=== PATIENT | male | born 2000 | race Caucasian/White ===

== ENCOUNTER 2022-06-06 11:42 | Inpatient (IN) ==
[2022-06-06] MEDS ORDERED: Iopamidol - 370 500 ML MLS IVP ONE (13:05)
[2022-06-06 13:32] LABS: Basophils % 0.2 %; Eosinophils % 0.2 %; Hematocrit 39.5 % (37.5-50.1); Hemoglobin 14.3 g/dL (12.9-16.9); Immature Granulocytes % 0.5 % (0-4); Lymphocytes # 0.7 K/mcL (0.6-4.6); Lymphocytes % 4.1 %; Mean Corpuscular HGB Conc 36.2 g/dL (31.6-35.5); Mean Corpuscular Volume 85.5 fL (83.0-100.0); Mean Platelet Volume 10.6 fL (9.4-12.4); Monocytes # 1.2 K/mcL (0.0-1.3); Monocytes % 6.4 %; Neutrophils # 15.9 K/mcL (1.6-8.9); Platelet Count 291 K/mcL (140-400); Red Blood Count 4.62 M/mcL (4.19-5.50); Red Cell Distribution Width 11.2 % (11.5-14.5); Segmented Neutrophils % 88.6 %; White Blood Count 17.9 K/mcL (4.3-11.1)
[2022-06-06] MEDS ORDERED: Tdap (Boostrix) Vaccine 0.5 ML SYRINGE IM ONE (14:04)
[2022-06-06] MEDS ORDERED: Piperacillin/Tazobactam 3.375 GM in 0.9 % Sodium Chloride Mini Bag 100 ML IVPB ONE (14:04)
[2022-06-06] MEDS ORDERED: Vancomycin 1,250 MG/262.5 ML IV.SOLN IVPB ONE (14:04)
[2022-06-06] MEDS ORDERED: Clindamycin 600 MG/50 ML 600 MG/50 ML IV.SOLN IVPB ONE (14:26)
[2022-06-06 14:56] LABS: Alanine Aminotransferase 93 Units/L (7-52); Albumin 4.3 g/dL (3.5-5.7); Albumin/Globulin Ratio 1.2 (1.1-2.2); Alkaline Phosphatase 74 Units/L (34-104); Aspartate Amino Transferase 145 Units/L (13-39); BUN/Creatinine Ratio 20 (6-26); Bilirubin,Direct 0.2 mg/dL (0.0-0.2); Bilirubin,Indirect 0.9 mg/dL (0.0-1.0); Bilirubin,Total 1.1 mg/dL (0.3-1.0); Blood Urea Nitrogen 19 mg/dL (6-20); C-Reactive Protein 32 mg/L (Less than 10); Calcium 9.3 mg/dL (8.6-10.3); Carbon Dioxide 36 mEq/L (23-29); Chloride 88 mEq/L (98-107); Globulin 3.6 g/dL (2.4-3.5); Glucose 107 mg/dL (70-105); Osmolality,Calculated 277 (280-300); Sodium 132 mEq/L (136-145); Total Protein 7.9 g/dL (6.4-8.9)
[2022-06-06] MEDS ORDERED: Ketorolac 30 MG/ML VIAL IVP ONE (15:00)
[2022-06-06] MEDS ORDERED: Ondansetron 4 MG/2 ML VIAL IVP ONE (15:00)
[2022-06-06 15:12] LABS: Troponin I < 0.03 ng/mL (< 0.04)
[2022-06-06] MEDS ORDERED: Ondansetron ODT 4 MG TAB.RAPDIS SL PRN (15:43)
[2022-06-06] MEDS ORDERED: Naloxone 0.4 MG/ML INJ IVP PRN (15:43)
[2022-06-06 16:56] LABS: Magnesium 1.7 mg/dL (1.6-2.6)
[2022-06-06 16:57] LABS: Troponin I < 0.03 ng/mL (< 0.04)
[2022-06-06 17:02] LABS: Phosphorous 1.3 mg/dL (2.7-4.5)
[2022-06-06] MEDS ORDERED: Baclofen 10 MG TABLET PO SCH (17:15)
[2022-06-06 17:23] LABS: Bilirubin,Urine Negative (Negative); Blood,Urine Negative (Negative); Clarity,Urine Clear (Clear); Color,Urine Colorless (Yellow); Glucose,Urine (UA) Normal (Normal); Ketones,Urine 40 mg/dL (Negative); Leukocyte Esterase,Urine Negative (Negative); Nitrite,Urine Negative (Negative); PH,Urine 7.5 pH Units (5.0-8.0); Protein,Urine Trace mg/dL (Neg-Trace); Specific Gravity,Urine > 1.030 (1.010-1.025); Urobilinogen,Urine Normal (Normal)
[2022-06-06] MEDS: 0.9 % Sodium Chloride w KCl 20 MEQ/1,000 ML MLS IVC SCH (17:50)
[2022-06-06] MEDS: cloNIDine HCL 0.1 MG TABLET PO SCH (17:56)
[2022-06-06] MEDS: tiZANidine 4 MG TABLET PO PRN ×2 (17:56→20:37)
[2022-06-06] MEDS: Baclofen 10 MG TABLET PO SCH (17:57)
[2022-06-06] MEDS: Melatonin 3 MG TABLET PO PRN (20:37)
[2022-06-07] MEDS: Acetaminophen 325 MG TABLET PO PRN ×3 (03:18→19:44)
[2022-06-07] MEDS: 0.9 % Sodium Chloride w KCl 20 MEQ/1,000 ML MLS IVC SCH (03:19)
[2022-06-07 06:11] LABS: Basophils % 0.1 %; Eosinophils # 0.1 K/mcL (0.0-0.6); Eosinophils % 0.6 %; Immature Granulocytes % 0.2 % (0-4); Lymphocytes % 7.6 %; Mean Corpuscular Hemoglobin 31.1 pg (28.0-33.3); Mean Corpuscular Volume 86.4 fL (83.0-100.0); Mean Platelet Volume 10.9 fL (9.4-12.4); Monocytes # 1.1 K/mcL (0.0-1.3); Neutrophils # 11.3 K/mcL (1.6-8.9); Platelet Count 229 K/mcL (140-400); Red Blood Count 4.05 M/mcL (4.19-5.50); Red Cell Distribution Width 11.2 % (11.5-14.5); Segmented Neutrophils % 83.5 %; White Blood Count 13.6 K/mcL (4.3-11.1)
[2022-06-07 06:14] LABS: Hemoglobin 12.6 g/dL (12.9-16.9)
[2022-06-07 06:34] LABS: BUN/Creatinine Ratio 17 (6-26); Blood Urea Nitrogen 15 mg/dL (6-20); Calcium 8.8 mg/dL (8.6-10.3); Carbon Dioxide 34 mEq/L (23-29); Chloride 95 mEq/L (98-107); Cholesterol 108 mg/dL (< 200); Glucose 97 mg/dL (70-105); HDL Cholesterol 36 mg/dL (40-59); LDL Cholesterol,Calculated 56 mg/dL (< 100); Osmolality,Calculated 279 (280-300); Potassium 3.2 mEq/L (3.5-5.1); Sodium 134 mEq/L (136-145); Triglycerides 81 mg/dL (< 150)
[2022-06-07] MEDS: Baclofen 10 MG TABLET PO SCH ×3 (09:10→19:44)
[2022-06-07] MEDS: cloNIDine HCL 0.1 MG TABLET PO SCH ×3 (09:11→19:44)
[2022-06-07] MEDS: Piperacillin/Tazobactam 3.375 GM in 0.9 % Sodium Chloride Mini Bag 100 ML IVPB SCH ×2 (09:15→15:59)
[2022-06-07] MEDS: Vancomycin 1,250 MG/262.5 ML IV.SOLN IVPB SCH ×2 (09:17→19:45)
[2022-06-07] MEDS: tiZANidine 4 MG TABLET PO PRN ×2 (09:40→19:43)
[2022-06-07] MEDS: Melatonin 3 MG TABLET PO PRN (19:44)
[2022-06-07] MEDS ORDERED: traZODone 50 MG TABLET PO SCH (21:00)
[2022-06-08] MEDS: Piperacillin/Tazobactam 3.375 GM in 0.9 % Sodium Chloride Mini Bag 100 ML IVPB SCH ×2 (00:21→09:41)
[2022-06-08 00:24] VITALS: O2SAT 100
[2022-06-08 02:45] LABS: Basophils % 0.2 %; Eosinophils # 0.2 K/mcL (0.0-0.6); Eosinophils % 1.6 %; Hematocrit 34.6 % (37.5-50.1); Hemoglobin 11.7 g/dL (12.9-16.9); Immature Granulocytes % 0.5 % (0-4); Lymphocytes # 1.6 K/mcL (0.6-4.6); Lymphocytes % 15.1 %; Mean Corpuscular HGB Conc 33.8 g/dL (31.6-35.5); Mean Corpuscular Hemoglobin 30.9 pg (28.0-33.3); Mean Corpuscular Volume 91.3 fL (83.0-100.0); Mean Platelet Volume 11.3 fL (9.4-12.4); Monocytes # 0.9 K/mcL (0.0-1.3); Monocytes % 8.4 %; Neutrophils # 7.8 K/mcL (1.6-8.9); Platelet Count 220 K/mcL (140-400); Red Blood Count 3.79 M/mcL (4.19-5.50); Red Cell Distribution Width 11.5 % (11.5-14.5); Segmented Neutrophils % 74.2 %; White Blood Count 10.6 K/mcL (4.3-11.1)
[2022-06-08 03:04] LABS: BUN/Creatinine Ratio 9 (6-26); Blood Urea Nitrogen 8 mg/dL (6-20); Calcium 8.3 mg/dL (8.6-10.3); Carbon Dioxide 28 mEq/L (23-29); Chloride 105 mEq/L (98-107); Glucose 125 mg/dL (70-105); Osmolality,Calculated 288 (280-300); Potassium 3.4 mEq/L (3.5-5.1); Sodium 139 mEq/L (136-145)
[2022-06-08 04:33] VITALS: BP 125/63; PULSE 58; TEMP 98
[2022-06-08] MEDS: Acetaminophen 325 MG TABLET PO PRN (04:33)
[2022-06-08] MEDS: tiZANidine 4 MG TABLET PO PRN (04:33)
[2022-06-08] MEDS: cloNIDine HCL 0.1 MG TABLET PO SCH (09:40)
[2022-06-08] MEDS: Baclofen 10 MG TABLET PO SCH (09:40)
== END 2022-06-08 11:35 | disposition home or self-care (01) | DRG 720 ==
LOC: 2NENU 11:42 → EMEROOARM 11:42 → SUATTDRO 15:25 → 2NENU 15:53
PROVIDERS: ADMIT Internal Medicine; ATTEND Internal Medicine